=== PATIENT | male | born 1980 | race Caucasian/White ===

== ENCOUNTER → 2018-10-20 | Day surgery (SDC) | payer OTHER ==
[~2018-10-20] MED LIST: DEXAMETHASONE SOD PHOS INJ 4 MG/ML VIAL ONE; FENTANYL CITRATE/PF 100MCG/2 ML INJ ONE; IOPAMIDOL 610MG/1ML 300 MG/ML VIAL IV ONE; LEVOFLOXACIN 500MG/D5W 100ML 100 ML IV ONE; LIDOCAINE HCL 2% LOCAL INJ 5 ML SDV VIAL INJ ONE; MIDAZOLAM HCL 2 MG/2 ML VIAL ONE; ONDANSETRON HCL INJ 2MG/ML 2ML 2 MG/ML VIAL ONE; PROAIR HFA INH8.5 GM INH; PROPOFOL IV EMULSION 10 MG/ML 20 ML VIAL ONE; SEVOFLURANE INHAL SOLN 250 ML PEN BTL ONE; [UNRECOGNIZED DRUG - OTHER] PO
--- OUTSIDE RECORDS SUMMARY | 2018-10-20 07:35 | XMS REPORT ---
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
--- OUTSIDE RECORDS SUMMARY | 2018-10-20 07:35 | XMS REPORT ---
Author Author [facility] Address Unknown Phone Unavailable Care Team Providers Care [employer] Liaison Officer Name Role Phone Jr Perez S Harold Unavailable Unavailable Problems This patient has no known problems. Allergies, Adverse Reactions, Alerts This patient has no known allergies or adverse reactions. Medications This patient has no known medications. Encounters Start Date/Time End Date/Time Encounter Type Admission Type Attending [facility] Care Facility Care Department Encounter ID 2017-06-09 14:47:00 2017-06-09 14:47:00 Outpatient Jr Perez Harold SETENT SETENT [id number]
[2018-10-20 10:50] VITALS: BP 135/82
--- NOTE | 2018-10-20 15:59 | Operative Report ---
DATE OF PROCEDURE: 10/20/2018 SURGEON: Haile Bejarano MD PREOPERATIVE DIAGNOSES: 1. Total gross painless hematuria. 2. Prostatitis. POSTOPERATIVE DIAGNOSES: 1. Total gross painless hematuria. 2. Prostatitis. OPERATIONS PERFORMED: 1. Cystourethroscopy. 2. Bilateral retrograde pyelogram. ANESTHETIC: General. INDICATIONS: Mr. Best is a 38-year-old male, who presented with a chief complaint of total gross painless hematuria. CT scan was unremarkable. DESCRIPTION OF PROCEDURE: This patient was placed on the table in the lithotomy position and was prepped and draped in a sterile manner after satisfactory anesthesia. A #23-[place] Islander cystoscope was used and cystourethroscopy was performed and it was noted that the urethra was normal. The prostatic urethra was about 3 cm long, bilobar, partially occlusive, congestive, and bleeding to touch. Cystoscopy was then performed using both the right angle and the Foroblique lens and it was noted that the bladder mucosa was normal with no evidence of gross tumor, pathology, or any papillary lesions. Both ureteral orifices were seen and were within normal position, configuration efflux. The bladder wall was normal. Right retrograde pyelogram was then performed using a #8 ball-tip ureteral catheter, inserted at the right ureteral orifice, and 5 mL of contrast material was injected. The retrograde performed was normal. Left retrograde pyelogram was performed similarly and was normal. The bladder was drained. Cystoscope was removed and the patient was taken to the recovery room in satisfactory condition. Plan for this patient is to be placed on Cipro 500 mg one twice a day for 3 weeks. Ultracet tablet one every 6 to 8 hours p.r.n. and was given #15. He is to return to the office in 3 weeks. Haile Bejarano MD MA/MAGDALENAL /[id number]
== END | disposition home or self-care (01) ==
LOC: OR 07:33
PROVIDERS: ATTEND Specialist
DX: N41.9 Inflammatory disease of prostate, unspecified (principal); N20.0 Calculus of kidney; J45.909 Unspecified asthma, uncomplicated
CPT/HCPCS: 52005; 74420; 93005; J1100; J1956; J2001; J2250; J2405; J2704; J3010; Q9967; 50590